=== PATIENT | female | born 1930 | race Caucasian/White ===

== ENCOUNTER 2016-07-27 13:46 | Inpatient (IN) | payer OTHER ==
[~2016-07-27] VITALS: Ht 160 cm; Wt 75.2 kg
[~2016-07-27 13:46] MED LIST: ALBU1AER9 INH; ATV5 PO; CLTP PO; FLNIN NAE; GEMF600T3 PO; MOME50SP5 NAE; MULT-506 PO; NXM/40 PO; SYMIN160 INH; SYN50 PO; ZFRODT4 SL
--- NOTE | 2016-07-27 14:35 | EMERGENCY ROOM VISIT NOTE ---
History Report prepared by Marivel: Anusha Fairbanks Under the Supervision of: Dr. Jose Raul Coelho M.D. First contact with patient: 14:06 Chief Complaint: FALL Stated Complaint: FALL/ RT HIP PAIN History of Present Illness The patient is a 86 year old female who presents to the Emergency Room via ambulance with complaints of constant right hip pain status post a fall today. The patient states that she turned in her kitchen and slipped. She tried to catch her herself but landed on her right hip on the floor. She was helped up but could not bear any weight on her right leg. She did not hit her head or lose consciousness during the fall. Currently, she also has some right knee pain. Denies back pain or other complaints. She is not on a blood thinner. Source of History: patient Onset: today Position: other (right hip) Timing: constant Modifying Factors (Worsening): other (bearing weight) Associated Symptoms: No LOC, No back pain Review of Systems See HPI for pertinent positives & negatives. A total of 10 systems reviewed and were otherwise negative. Past Medical & Surgical Medical Problems: (1) Hypertension (2) Lyme disease (3) Prediabetes Surgical Problems: (1) H/O: hysterectomy (2) Hx of cholecystectomy Family History FH: heart disease FHx: gallbladder disease Hypertension Social History Smoking Status: Never Smoker Marital Status: Occupation Status: retired Current/Historical Medications Scheduled Albuterol Sulfate (Proair Respiclick), 1-2 PUFFS INH 4-6 HOURS Esomeprazole Magnesium (Nexium), 40 MG PO DAILY Fluticasone Prop/Salmeterol (Advair Diskus 100/50 60 Dose), 1 PUFF INH BID Gemfibrozil (Lopid), 600 MG PO BID Levothyroxine Sodium (Synthroid), 75 MCG PO DAILY Loratadine (Claritin), 10 MG PO DAILY Lorazepam (Ativan), 0.5 MG PO TID Multiple Vitamins W/ Minerals (Centrum Silver Ultra Wome), 1 TAB PO DAILY Allergies Coded Allergies: No Known Allergies (Unverified , 08/09/11) Physical Exam Vital Signs Date Time Temp Pulse Resp B/P Pulse Ox O2 Delivery O2 Flow Rate FiO2 07/27/16 17:00 109 18 184/104 07/27/16 15:17 103 18 203/107 93 Room Air 07/27/16 14:04 97 07/27/16 13:53 36.8 96 18 225/103 96 Room Air Physical Exam GENERAL: Patient is in no acute distress. HEENT: No acute trauma, normocephalic atraumatic, mucous membranes moist, no nasal congestion, no scleral icterus. NECK: No stridor, no adenopathy, no meningismus, trachea is midline. LUNGS: Clear to auscultation bilaterally, no wheeze, no rhonchi, breath sounds equal. HEART: 3/6 systolic murmur with a regular rate and rhythm. ABDOMEN: Soft, nontender, bowel sounds positive, no hernias, no peritonitis. EXTREMITIES: No upper extremity trauma noted. Pain to palpate the right lateral hip, no gross deformity to the right lower extremity, her right hip and right knee are slightly flexed to a position of comfort. NVI distally. NEUROLOGIC: Oriented x 3, no acute motor or sensory deficits, no focal weakness. SKIN: No rash, no jaundice, no diaphoresis. Medical Decision & Procedures ER Provider Diagnostic Interpretation: Radiology results and stated below per my review and radiologist interpretation: PELVIS 1 OR 2 VIEW ROUTINE CLINICAL HISTORY: Right hip pain following fall. COMPARISON STUDY: CT of the abdomen and pelvis August 14, 2011. FINDINGS: There is an acute impacted, displaced subcapital right femoral neck fracture. No acute fracture within the pelvis or the left hip is identified. There is mild to moderate bilateral hip arthritis. IMPRESSION: Acute impacted displaced subcapital right femoral neck fracture. Electronically signed by: Emil Spangler M.D. 07/27/2016 2:53 PM Dictated Date/Time: 07/27/2016 2:53 PM RIGHT FEMUR 2 VIEWS ROUTINE, RIGHT KNEE 1 OR 2 VIEWS ROUTINE CLINICAL HISTORY: fall, pain Right. Right leg and knee pain. COMPARISON STUDY: None. FINDINGS: No fracture or dislocation within the mid to distal right femur or right knee. The proximal right femur is not included on this study and better appreciated on the same day right hip radiograph. Mild osteoarthritis within the right knee. No knee effusion. Soft tissues are unremarkable. IMPRESSION: No fracture or dislocation within the mid to distal right femur or right knee. The proximal right femur is not included on this study and is better appreciated on the same day right hip radiograph. Electronically signed by: Mac Contreras M.D. 07/27/2016 2:55 PM Dictated Date/Time: 07/27/2016 2:53 PM RIGHT HIP UNILATERAL 2 VIEWS CLINICAL HISTORY: Right hip pain following fall. COMPARISON: CT of the abdomen and pelvis August 14, 2011. FINDINGS: There is an impacted, displaced subcapital right femoral neck fracture. IMPRESSION: Acute displaced subcapital right femoral neck fracture. Electronically signed by: Emil Spangler M.D. 07/27/2016 2:52 PM Dictated Date/Time: 07/27/2016 2:51 PM RIGHT FEMUR 2 VIEWS ROUTINE, RIGHT KNEE 1 OR 2 VIEWS ROUTINE CLINICAL HISTORY: fall, pain Right. Right leg and knee pain. COMPARISON STUDY: None. FINDINGS: No fracture or dislocation within the mid to distal right femur or right knee. The proximal right femur is not included on this study and better appreciated on the same day right hip radiograph. Mild osteoarthritis within the right knee. No knee effusion. Soft tissues are unremarkable. IMPRESSION: No fracture or dislocation within the mid to distal right femur or right knee. The proximal right femur is not included on this study and is better appreciated on the same day right hip radiograph. Electronically signed by: Mac Contreras M.D. 07/27/2016 2:55 PM Dictated Date/Time: 07/27/2016 2:53 PM CHEST ONE VIEW PORTABLE CLINICAL HISTORY: Hip fracture. Fall. COMPARISON STUDY: Chest radiograph August 09, 2011. FINDINGS: There is no pneumothorax or pleural effusion. The cardiomediastinal silhouette is stable. There is no evidence of pulmonary edema. The appearance of the chest is unchanged. IMPRESSION: No acute cardiopulmonary findings. Electronically signed by: Emil Spangler M.D. 07/27/2016 3:35 PM Dictated Date/Time: 07/27/2016 3:35 PM Laboratory Results 07/27/16 14:00 Red Blood Count 4.27, Mean Corpuscular Volume 86.9, Mean Corpuscular Hemoglobin 28.8, Mean Corpuscular Hemoglobin Concent 33.2, Mean Platelet Volume 9.6, Neutrophils (%) (Auto) 63.1, Lymphocytes (%) (Auto) 25.8, Monocytes (%) (Auto) 8.5, Eosinophils (%) (Auto) 0.8, Basophils (%) (Auto) 0.4, Neutrophils # (Auto) 5.71, Lymphocytes # (Auto) 2.34, Monocytes # (Auto) 0.77, Eosinophils # (Auto) 0.07, Basophils # (Auto) 0.04 07/27/16 14:00 Test 07/27/16 14:00 07/27/16 16:53 White Blood Count 9.06 K/uL (4.8-10.8) Red Blood Count 4.27 M/uL (4.2-5.4) Hemoglobin 12.3 g/dL (12.0-16.0) Hematocrit 37.1 % (37-47) Mean Corpuscular Volume 86.9 fL (80-100) Mean Corpuscular Hemoglobin 28.8 pg (25-34) Mean Corpuscular Hemoglobin Concent 33.2 g/dl (32-36) Platelet Count 336 K/uL (130-400) Mean Platelet Volume 9.6 fL (7.4-10.4) Neutrophils (%) (Auto) 63.1 % Lymphocytes (%) (Auto) 25.8 % Monocytes (%) (Auto) 8.5 % Eosinophils (%) (Auto) 0.8 % Basophils (%) (Auto) 0.4 % Neutrophils # (Auto) 5.71 K/uL (1.4-6.5) Lymphocytes # (Auto) 2.34 K/uL (1.2-3.4) Monocytes # (Auto) 0.77 K/uL (0.11-0.59) Eosinophils # (Auto) 0.07 K/uL (0-0.5) Basophils # (Auto) 0.04 K/uL (0-0.2) RDW Standard Deviation 44.3 fL (36.4-46.3) RDW Coefficient of Variation 13.9 % (11.5-14.5) Immature Granulocyte % (Auto) 1.4 % Immature Granulocyte # (Auto) 0.13 K/uL (0.00-0.02) Prothrombin Time 11.5 SECONDS (9.0-12.0) Prothromb Time International Ratio 1.1 (0.9-1.1) Activated Partial Thromboplast Time 29.4 SECONDS (21.0-31.0) Partial Thromboplastin Ratio 1.1 Anion Gap 8.0 mmol/L (3-11) Est Creatinine Clear Calc Drug Dose 46.6 ml/min Estimated GFR () 75.2 Estimated GFR (Non- 64.8 BUN/Creatinine Ratio 18.5 (10-20) Calcium Level 8.8 mg/dl (8.5-10.1) Laboratory results reviewed by me. Medications Administered Medications (Trade) Dose Ordered Sig/Bunny Route Start Time Stop Time Status Last Admin Dose Admin Lactated Ringer's (Lr 1000ml) 1,000 ml @ 150 mls/hr Q6H40M IV 07/27/16 15:05 08/26/16 15:04 07/27/16 16:04 150 MLS/HR Acetaminophen (Tylenol Tab) 1,000 mg Q6H PRN PO 07/27/16 15:15 08/26/16 15:14 07/27/16 16:05 1,000 MG Hydralazine HCl (HydrALAZINE INJ) 5 mg NOW STAT IV. 07/27/16 15:57 07/27/16 16:09 DC 07/27/16 16:17 5 MG ECG Indication: other (fall) Rate (beats per minute): 103 Rhythm: sinus tachycardia Findings: PAC, no acute ischemic change ED Course 1409: The patient was evaluated in room B7. A complete history and physical exam was performed. 1505: Ordered Lactated Ringer's 1000 ml @ 150 mls/hr IV. 1508: Upon reexamination the patient is resting comfortably. I discussed results and treatment plan with the patient. She verbalizes agreement and understanding. The patient will be evaluated for further management. 1505: Ordered Tylenol Tab 1000 mg PO. 1510: I discussed the case with Dr. Rizvi [place] [facility] [place] The patient will be evaluated for further management. Medical Decision Differential includes but is not limited to hip or pelvic fracture, hip contusion, femur fracture, knee fracture, strain. There is no leukocytosis were concerning anemia. No significant electrolyte abnormality or kidney failure. EKG shows a sinus tachycardia, no acute ischemia , no dysrhythmia. Pelvis, right hip, right femur and right knee films were done -there is a fracture of the right femur. The fracture is subcapital. There is no pelvic, distal femur or right knee fracture. The patient received only oral Tylenol for pain, she did not want anything stronger. I did talk with her about her findings, I talked with case management. The on-call hospitalist was consulted. Orthopedic intervention will be required. Of note, on exam, I find no evidence for injury elsewhere. Her injuries appear to be related to the right hip alone. Consults Time Called: 1506 Consulting Physician: Dr. Dmitri VELA Hospitalist Returned Call: 1510 I discussed the case with her. The patient will be evaluated for further management. Impression Primary Impression: Hip fracture, right Additional Impression: Fall Scribe Attestation The scribe's documentation has been prepared under my direction and personally reviewed by me in its entirety. I confirm that the note above accurately reflects all work, treatment, procedures, and medical decision making performed by me. Departure Information Dispostion Being Evaluated By Hospitalist Referrals Alexander Wren M.D. (PCP) Patient Instructions My [facility] Problem Qualifiers
--- NOTE | 2016-07-27 14:55 | DIAGNOSTIC IMAGING REPORT ---
RIGHT HIP UNILATERAL 2 VIEWS CLINICAL HISTORY: Right hip pain following fall. COMPARISON: CT of the abdomen and pelvis August 14, 2011. FINDINGS: There is an impacted, displaced subcapital right femoral neck fracture. IMPRESSION: Acute displaced subcapital right femoral neck fracture. Electronically signed by: Emil Spangler M.D. 07/27/2016 2:52 PM Dictated Date/Time: 07/27/2016 2:51 PM
--- NOTE | 2016-07-27 14:56 | DIAGNOSTIC IMAGING REPORT ---
PELVIS 1 OR 2 VIEW ROUTINE CLINICAL HISTORY: Right hip pain following fall. COMPARISON STUDY: CT of the abdomen and pelvis August 14, 2011. FINDINGS: There is an acute impacted, displaced subcapital right femoral neck fracture. No acute fracture within the pelvis or the left hip is identified. There is mild to moderate bilateral hip arthritis. IMPRESSION: Acute impacted displaced subcapital right femoral neck fracture. Electronically signed by: Emil Spangler M.D. 07/27/2016 2:53 PM Dictated Date/Time: 07/27/2016 2:53 PM
--- NOTE | 2016-07-27 14:57 | DIAGNOSTIC IMAGING REPORT ---
RIGHT FEMUR 2 VIEWS ROUTINE, RIGHT KNEE 1 OR 2 VIEWS ROUTINE CLINICAL HISTORY: fall, pain Right. Right leg and knee pain. COMPARISON STUDY: None. FINDINGS: No fracture or dislocation within the mid to distal right femur or right knee. The proximal right femur is not included on this study and better appreciated on the same day right hip radiograph. Mild osteoarthritis within the right knee. No knee effusion. Soft tissues are unremarkable. IMPRESSION: No fracture or dislocation within the mid to distal right femur or right knee. The proximal right femur is not included on this study and is better appreciated on the same day right hip radiograph. Electronically signed by: Mac Contreras M.D. 07/27/2016 2:55 PM Dictated Date/Time: 07/27/2016 2:53 PM
[2016-07-27] MEDS ORDERED: LACTATED RINGER'S 1000ML 1,000 ML IV SCH (15:05)
[2016-07-27 15:14] LABS: BASO % 0.4 %; BASO ABS # 0.04 K/uL (0-0.2); COMPLETE YES; EOS % 0.8 %; HEMATOCRIT 37.1 % (37-47); IG% 1.4 %; LYMPH % 25.8 %; LYMPH ABS # 2.34 K/uL (1.2-3.4); MEAN CELL VOLUME 86.9 fL (80-100); MEAN CORPUSCULAR HEMOGLOBIN 28.8 pg (25-34); MEAN CORPUSCULAR HGB CONC 33.2 g/dl (32-36); MEAN PLATELET VOLUME 9.6 fL (7.4-10.4); MONO % 8.5 %; NEUT % 63.1 %; PLATELET COUNT 336 K/uL (130-400); RED BLOOD COUNT 4.27 M/uL (4.2-5.4); WHITE BLOOD COUNT 9.06 K/uL (4.8-10.8)
[2016-07-27] MEDS ORDERED: ACETAMINOPHEN 500 MG TAB PO PRN (15:15)
[2016-07-27 15:19] LABS: INR 1.1 (0.9-1.1); PARTIAL THROMBOPLASTIN RATIO 1.1; PROTHROMBIN TIME (PATIENT) 11.5 SECONDS (9.0-12.0)
[2016-07-27 15:25] LABS: BUN/CREATININE RATIO 18.5 (10-20); CALCIUM 8.8 mg/dl (8.5-10.1); CREATININE 0.81 mg/dl (0.60-1.20); POTASSIUM 3.8 mmol/L (3.5-5.1)
--- NOTE | 2016-07-27 15:37 | DIAGNOSTIC IMAGING REPORT ---
CHEST ONE VIEW PORTABLE CLINICAL HISTORY: Hip fracture. Fall. COMPARISON STUDY: Chest radiograph August 09, 2011. FINDINGS: There is no pneumothorax or pleural effusion. The cardiomediastinal silhouette is stable. There is no evidence of pulmonary edema. The appearance of the chest is unchanged. IMPRESSION: No acute cardiopulmonary findings. Electronically signed by: Emil Spangler M.D. 07/27/2016 3:35 PM Dictated Date/Time: 07/27/2016 3:35 PM
[2016-07-27] MEDS ORDERED: LORA-741 PO (15:45)
[2016-07-27] MEDS ORDERED: ADVIN10/60 INH (15:45)
[2016-07-27] MEDS ORDERED: MULT-614 PO (15:45)
[2016-07-27] MEDS ORDERED: CLR10 PO (15:45)
[2016-07-27] MEDS ORDERED: LEVO75TA PO (15:45)
[2016-07-27] MEDS ORDERED: ALBU18002 INH (15:45)
[2016-07-27] MEDS ORDERED: HydrALAZINE HCL 20 MG/ML VIAL IM STA (15:49)
[2016-07-27] MEDS ORDERED: HydrALAZINE HCL 20 MG/ML VIAL IV. STA (15:57)
[2016-07-27] MEDS ORDERED: ALBUTEROL HFA 8 GM INHALER INH PRN (16:00)
[2016-07-27] MEDS ORDERED: ACETAMINOPHEN 325 MG TAB PO PRN (16:00)
[2016-07-27] MEDS ORDERED: LORAZEPAM 0.5 MG TAB PO PRN (16:00)
[2016-07-27] MEDS ORDERED: ONDANSETRON INJ 2 MG/ML 2 ML VIAL IV PRN (16:00)
[2016-07-27] MEDS ORDERED: MAGNESIUM HYDROXIDE SUSP 30 ML UDC PO PRN (16:00)
[2016-07-27] MEDS ORDERED: ALUMINUM/MAGNESIUM/SIMETH (MAALOX MAX) 30 ML UDC PO PRN (16:00)
--- NOTE | 2016-07-27 16:04 | History and Physical ---
History & Physical Date & Time of Service: Jul 27, 2016 at 15:23 Chief Complaint: Fall/ Rt Hip Pain Primary Care Physician: Alexander Wren M.D. History of Present Illness Source: patient Patient is a 85 y.o.F: who presented to the ED with hip fracture. Pt has a PMHx of Asthma, hypothyroidism, macular degeneration. She states that this morning while making her breakfast she turned around and experience an mechanical fall on her right hip. Patient denies any LOC, dizziness, SOB, or chest pain prior to fall. Her life alert was signalled and EMS came. At that time patient noticed she could not weight bear on her left extremity and proceeded ED. Past Medical/Surgical History Medical Problems: (1) Hypertension Status: Chronic (2) Lyme disease Status: Chronic (3) Prediabetes Status: Chronic Surgical Problems: (1) H/O: hysterectomy Status: Resolved (2) Hx of cholecystectomy Status: Resolved Family History FH: heart disease FHx: gallbladder disease Hypertension Social History Smoking Status: Never Smoker Smokeless Tobacco Use: No Alcohol Use: none Drug Use: none Marital Status: Housing status: lives alone Occupational Status: retired Immunizations History of Influenza Vaccine: Yes Influenza Vaccine Date: Feb 20, 2010 History of Tetanus Vaccine?: Unknown History of Pneumococcal: Yes History of Hepatitis B Vaccine: Unknown Multi-Drug Resistant Organisms History of MDRO: No Allergies Coded Allergies: No Known Allergies (Unverified , 08/09/11) Uncoded Allergies: NKA (Allergy, Unknown, 09/12/14) No Known Allergies Home Medications Scheduled Albuterol Sulfate (Proair Respiclick), 1-2 PUFFS INH 4-6 HOURS Esomeprazole Magnesium (Nexium), 40 MG PO DAILY Fluticasone Prop/Salmeterol (Advair Diskus 100/50 60 Dose), 1 PUFF INH BID Gemfibrozil (Lopid), 600 MG PO BID Levothyroxine Sodium (Synthroid), 75 MCG PO DAILY Loratadine (Claritin), 10 MG PO DAILY Lorazepam (Ativan), 0.5 MG PO TID Multiple Vitamins W/ Minerals (Centrum Silver Ultra Wome), 1 TAB PO DAILY Review of Systems Constitutional: No chills, No fever ENT: No hearing loss Respiratory: No cough, No shortness of breath, No sputum Cardiovascular: No chest pain, No claudication, No edema Abdomen: No pain Musculoskeletal: + joint pain (right hip pain on movement), No swelling Genitourinary - Female: No dysuria Neurologic: No memory loss, No paralysis Psychiatric: No depression symptoms Endocrine: No fatigue Hematologic / Lymphatic: No abnormal bleeding/bruising Integumentary: No itch, No rash Physical Exam Vital Signs Date Time Temp Pulse Resp B/P Pulse Ox O2 Delivery O2 Flow Rate FiO2 07/27/16 15:17 103 18 93 Room Air 07/27/16 14:04 97 07/27/16 13:53 36.8 96 18 225/103 96 Room Air General Appearance: WD/WN, no apparent distress Head: normocephalic Eyes: normal inspection ENT: normal ENT inspection, hearing grossly normal Neck: supple, no adenopathy Respiratory/Chest: chest non-tender, lungs clear Cardiovascular: regular rate, rhythm, no edema Abdomen/GI: normal bowel sounds, non tender Back: normal inspection Extremities/Musculoskelatal: normal inspection, no calf tenderness, no pedal edema, + pertinent finding (No swelling or deformatiy noted of right hip) Neurologic/Psych: rd mechanical engineer II-XII nml as tested, no motor/sensory deficits Skin: normal color, warm/dry, no rash Lymphatic: no adenopathy Diagnostics Laboratory Results Results Past 24 Hours Test 07/27/16 14:00 Range/Units White Blood Count 9.06 4.8-10.8 K/uL Red Blood Count 4.27 4.2-5.4 M/uL Hemoglobin 12.3 12.0-16.0 g/dL Hematocrit 37.1 37-47 % Mean Corpuscular Volume 86.9 80-100 fL Mean Corpuscular Hemoglobin 28.8 25-34 pg Mean Corpuscular Hemoglobin Concent 33.2 32-36 g/dl Platelet Count 336 130-400 K/uL Mean Platelet Volume 9.6 7.4-10.4 fL Neutrophils (%) (Auto) 63.1 % Lymphocytes (%) (Auto) 25.8 % Monocytes (%) (Auto) 8.5 % Eosinophils (%) (Auto) 0.8 % Basophils (%) (Auto) 0.4 % Neutrophils # (Auto) 5.71 1.4-6.5 K/uL Lymphocytes # (Auto) 2.34 1.2-3.4 K/uL Monocytes # (Auto) 0.77 0.11-0.59 K/uL Eosinophils # (Auto) 0.07 0-0.5 K/uL Basophils # (Auto) 0.04 0-0.2 K/uL RDW Standard Deviation 44.3 36.4-46.3 fL RDW Coefficient of Variation 13.9 11.5-14.5 % Immature Granulocyte % (Auto) 1.4 % Immature Granulocyte # (Auto) 0.13 0.00-0.02 K/uL Prothrombin Time 11.5 9.0-12.0 SECONDS Prothromb Time International Ratio 1.1 0.9-1.1 Activated Partial Thromboplast Time 29.4 21.0-31.0 SECONDS Partial Thromboplastin Ratio 1.1 Diagnostic Radiology Hip XRAY Acute displaced subcapital right femoral neck fracture. Impression Assessment and Plan Patient is a 86 y.o.F who presented with right hip pain found to have a hip fracture. On presentation patient found to have hypertensive urgency. Right Hip Fracture - admit to med surgery - consult orthopedics - pain control with morphine - bed Rest Hypertensive Urgency - pt has no PMhx of hypertension and states she is extremely anxious - cont ativan prn - will give now dose of hydralazine and then start on po hydralazine prn - would hold on OR until blood pressure controlled Asthma - not in exacerbation - continue albuterol prn and symbicort HLD - cont lopid PPx- lovenox Full Code Level of Care Med/Surg Resuscitation Status FULL RESUSCITATION VTE Prophylaxis VTE Risk Assessment Done? Y/N: No Risk Level: Moderate Given or contraindicated: Enoxaparin (Lovenox)SQ Social Service Consult None Apply
[2016-07-27] MEDS ORDERED: POLYETHYLENE (MIRALAX) 17 GM PACK PO PRN (17:15)
[2016-07-27 17:19] VITALS: Ht 160 cm; Wt 75.2 kg
[2016-07-27 17:20] LABS: URINE APPEARANCE CLEAR (CLEAR); URINE BILIRUBIN NEG (NEG); URINE COLOR YELLOW; URINE EPITHELIAL CELL AUTO 0-5 /lpf (0-5); URINE NITRITE NEG (NEG); UROBILINOGEN NEG (NEG); ZZURINE CULT IF INDIC CATH NO
[2016-07-27 17:28] LABS: MANUAL MICROSCOPIC REQUIRED? NO; REVIEW REQ? NO
[2016-07-27 18:08] VITALS: BP 177/84; PULSE 104; TEMP 37; O2SAT 95
[2016-07-27] MEDS: MoRPHine SULFATE 2 MG/ML CARP IV PRN (18:24)
[2016-07-27 18:46] VITALS: BP 160/65
[2016-07-27] MEDS ORDERED: ENOXAPARIN 40 MG/0.4 ML SYR SQ SCH (21:00)
[2016-07-27] MEDS: FLUTICASONE/SALMETEROL 100/50 (ADVAIR) 14 PUFF/1 INHALER INH SCH (21:15)
[2016-07-27] MEDS: GEMFIBROZIL 600 MG TAB PO SCH (21:16)
[2016-07-27 23:20] VITALS: BP 119/66; PULSE 70; TEMP 36.8; O2SAT 93
[2016-07-28] VITALS (7 sets, daily range): BP systolic 92–161; BP diastolic 61–74; PULSE 88–101; TEMP 36.3–37; O2SAT 94–98
[2016-07-28] MEDS: LEVOTHYROXINE 75 MCG TAB PO SCH (05:51)
[2016-07-28 06:07] LABS: HEMATOCRIT 36.5 % (37-47); MEAN CELL VOLUME 86.9 fL (80-100); MEAN CORPUSCULAR HGB CONC 33.4 g/dl (32-36); MEAN PLATELET VOLUME 9.3 fL (7.4-10.4); PLATELET COUNT 313 K/uL (130-400); WHITE BLOOD COUNT 11.29 K/uL (4.8-10.8)
[2016-07-28 06:41] LABS: BUN/CREATININE RATIO 14.2 (10-20); CALCIUM 8.5 mg/dl (8.5-10.1); CREATININE 0.74 mg/dl (0.60-1.20); POTASSIUM 3.8 mmol/L (3.5-5.1)
--- NOTE | 2016-07-28 08:33 | CONSULTATION REPORT ---
DATE OF CONSULTATION: 07/28/2016 REASON FOR CONSULT: Right hip fracture. HISTORY OF PRESENT ILLNESS: The patient is an 86-year-old white female who was admitted on 07/27/2016 at 3:[address] Rizvi. We were consulted when it was found the patient had an acute impacted, displaced subcapital right femoral neck fracture. Initially, the patient came in hypertensive and was admitted under the medicine service, and we have been asked to take care of her right hip fracture. Upon entering her room, she is awake and alert and oriented to person and place and states that her hip pain is under control at this point in time. She states that she was ambulating normally in her house, and when she turned to go a different direction, she lost her balance and fell to the floor. She had immediate pain in her right hip and was unable to get up and ambulate. She was brought to the Emergency Room. She was seen by the staff and x-rays were taken and found that she had the subcapital hip fracture as noted above. PAST MEDICAL HISTORY: Hypertension, Lyme disease, prediabetic. No history of hepatitis, tuberculosis, COPD or rheumatic fever. PAST SURGICAL HISTORY: Hysterectomy and cholecystectomy. She has had a right wrist surgery in the past. FAMILY HISTORY: Heart disease, cholelithiasis, hypertension. SOCIAL HISTORY: The patient is nonsmoker, does not use alcohol. She is and lives alone and her brother helps her with things like taking her to appointments, etc. MEDICATIONS: Albuterol 1-2 puffs inhaled q. 4-6 h., Nexium 40 mg p.o. daily, Advair Diskus 100/50 one puff inhaled b.i.d., gemfibrozil 600 mg p.o. b.i.d., levothyroxine 75 mcg p.o. daily, loratadine 10 mg p.o. daily, lorazepam 0.5 mg p.o. t.i.d., Centrum multivitamin 1 tab p.o. daily. REVIEW OF SYSTEMS: As per admitting history and physical. PHYSICAL EXAMINATION: VITAL SIGNS: This morning temp 36.8, pulse 70, respirations 18, BP 119/66, pulse ox is 93 on room air. GENERAL: The patient is a mildly obese white female, alert and oriented x2, pleasant, cooperative, in no acute distress. EXTREMITIES: On examination of her right hip, she has no overt bruising over the lateral aspect of her hip but has moderate pain with mild internal and external rotation of the right hip and even trying to do gentle flexion of the hip causes her discomfort. Range of motion of the hip is very limited at this time due to fracture. She has no knee pain on palpation of the right knee and she is moving her right ankle and toes quite well without discomfort. Left lower extremity is essentially benign and she has adequate range of motion of the left hip, knee, ankle and toes. Upper extremities are without injury and she is nontender over the shoulders, elbows and wrist, and range of motion is within normal limits. Distal pulses are equal bilaterally of the upper and lower extremities. She has good sensation in the lower extremities at this time as well as the upper extremities. NEUROLOGICAL: No gross motor deficits are noted at this time other than due to her hip fracture. Again, sensation is intact. DIAGNOSIS: Subcapital hip fracture, right hip. PLAN: The patient will either need percutaneous cannulated screws for fixation versus bipolar hemiarthroplasty, to be decided by surgeon at the time of the procedure. JAVI
[2016-07-28] MEDS: MoRPHine SULFATE 2 MG/ML CARP IV PRN ×2 (08:35→17:47)
[2016-07-28] MEDS: GEMFIBROZIL 600 MG TAB PO SCH ×2 (08:36→21:25)
[2016-07-28] MEDS: FLUTICASONE/SALMETEROL 100/50 (ADVAIR) 14 PUFF/1 INHALER INH SCH ×2 (08:37→21:22)
[2016-07-28] MEDS: CEROVITE ADV FORMULA TAB PO SCH (08:49)
[2016-07-28] MEDS: LORATADINE 10 MG TAB PO SCH (08:49)
--- NOTE | 2016-07-28 09:06 | Clinical Documentation Query ---
CLINICAL DOCUMENTATION QUERY 86 year old female who presents to the Emergency Room via ambulance with complaints of constant right hip pain status post a fall today. In your clinical opinion is this patient being managed for: ( x ) Traumatic Osteoporotic fracture of right femur sustained in ground level fall. ( ) Other explanation of clinical findings (Please Explain) ( ) Unable to determine (Please Define) ( ) Need to Discuss ( ) Not Agree The medical record reflects the following clinical findings, treatment, and risk factors. Clinical Indicators: 86y/o, female, Fall from ground level which fractured right femoral neck. Treatment: Orthopedic consult, scheduled surgical fixation. Risk Factors: Age, sex, low level fall where patient suffered long bone fracture in which young healthy bone would not have fractured. Please clarify and document your clinical opinion in the progress notes and discharge summary. Terms such as "probable", "suspected", "likely", "questionable", "possible", or "still to be ruled out" are acceptable. IF IN AGREEMENT, YOU MUST DOCUMENT ABOVE DIAGNOSTIC STATEMENT IN DAILY PROGRESS NOTES AND DISCHARGE SUMMARY. This document is not part of the patient's record. Thank You, Humberto Sorto, LUCIANA [phone]
[2016-07-28] MEDS ORDERED: BUPIVACAINE 0.5 % 5 MG/1 ML PF 10ML VIAL ONE (09:10)
--- NOTE | 2016-07-28 09:19 | Hospitalist Progress Note ---
Hospitalist Progress Note Date of Service Jul 28, 2016. Subjective Pt evaluation today including: conversation w/ patient, physical exam, chart review, lab review, review of studies, review of inpatient medication list Pt having some pain in rt hip and rt knee, otherwise doing well, BP improved, denies CP/SOB, no other injuries. She clearly remembers the fall, has no h/o angina or syncope. All Other Systems: Reviewed and Negative Objective Vital Signs Date Time Temp Pulse Resp B/P Pulse Ox O2 Delivery O2 Flow Rate FiO2 07/28/16 08:02 37.0 89 16 138/61 94 Room Air 07/28/16 07:10 Room Air 07/27/16 23:20 36.8 70 18 119/66 93 Room Air 07/27/16 20:15 Room Air 07/27/16 18:46 160/65 07/27/16 18:08 37.0 104 20 177/84 95 Room Air 07/27/16 17:36 103 18 169/78 93 Room Air 07/27/16 17:19 Room Air 07/27/16 17:00 109 18 184/104 07/27/16 15:17 103 18 203/107 93 Room Air 07/27/16 14:04 97 07/27/16 13:53 36.8 96 18 225/103 96 Room Air Physical Exam General Appearance: WD/WN, no apparent distress Eyes: normal inspection, sclerae normal ENT: pharynx normal Neck: trachea midline Respiratory/Chest: lungs clear, normal breath sounds, no respiratory distress, no accessory muscle use Cardiovascular: regular rate, rhythm, no edema, no gallop, + systolic murmur (2 /6 at RUSB) Abdomen: normal bowel sounds, non tender, soft, no organomegaly, no pulsatile mass Extremities: non-tender (except min ttp over rt hip), normal inspection, no pedal edema, no calf tenderness Neurologic/Psychiatric: no motor/sensory deficits, alert, normal mood/affect, oriented x 3 Skin: normal color, warm/dry, no rash Laboratory Results Last 24 Hours Test 07/27/16 14:00 07/27/16 16:53 07/28/16 05:37 White Blood Count 9.06 K/uL 11.29 K/uL Red Blood Count 4.27 M/uL 4.20 M/uL Hemoglobin 12.3 g/dL 12.2 g/dL Hematocrit 37.1 % 36.5 % Mean Corpuscular Volume 86.9 fL 86.9 fL Mean Corpuscular Hemoglobin 28.8 pg 29.0 pg Mean Corpuscular Hemoglobin Concent 33.2 g/dl 33.4 g/dl Platelet Count 336 K/uL 313 K/uL Mean Platelet Volume 9.6 fL 9.3 fL Neutrophils (%) (Auto) 63.1 % Lymphocytes (%) (Auto) 25.8 % Monocytes (%) (Auto) 8.5 % Eosinophils (%) (Auto) 0.8 % Basophils (%) (Auto) 0.4 % Neutrophils # (Auto) 5.71 K/uL Lymphocytes # (Auto) 2.34 K/uL Monocytes # (Auto) 0.77 K/uL Eosinophils # (Auto) 0.07 K/uL Basophils # (Auto) 0.04 K/uL RDW Standard Deviation 44.3 fL 44.1 fL RDW Coefficient of Variation 13.9 % 13.8 % Immature Granulocyte % (Auto) 1.4 % Immature Granulocyte # (Auto) 0.13 K/uL Prothrombin Time 11.5 SECONDS Prothromb Time International Ratio 1.1 Activated Partial Thromboplast Time 29.4 SECONDS Partial Thromboplastin Ratio 1.1 Sodium Level 134 mmol/L 134 mmol/L Potassium Level 3.8 mmol/L 3.8 mmol/L Chloride Level 100 mmol/L 97 mmol/L Carbon Dioxide Level 26 mmol/L 27 mmol/L Anion Gap 8.0 mmol/L 10.0 mmol/L Blood Urea Nitrogen 15 mg/dl 11 mg/dl Creatinine 0.81 mg/dl 0.74 mg/dl Est Creatinine Clear Calc Drug Dose 46.6 ml/min 51.0 ml/min Estimated GFR () 75.2 83.8 Estimated GFR (Non- 64.8 72.3 BUN/Creatinine Ratio 18.5 14.2 Random Glucose 95 mg/dl 102 mg/dl Calcium Level 8.8 mg/dl 8.5 mg/dl Urine Color YELLOW Urine Appearance CLEAR Urine pH 7.0 Urine Specific [place] 1.010 Urine Protein TRACE Urine Glucose (UA) NEG Urine Ketones TRACE Urine Occult Blood NEG Urine Nitrite NEG Urine Bilirubin NEG Urine Urobilinogen NEG Urine Leukocyte Esterase NEG Urine WBC (Auto) 0 /hpf Urine RBC (Auto) 0-4 /hpf Urine Hyaline Casts (Auto) 0 /lpf Urine Epithelial Cells (Auto) 0-5 /lpf Urine Bacteria (Auto) NEG Assessment and Plan Patient is a 86 y.o.F with a h/o hypothyroidism, HL, mild , mod AI, PFO, and mild asthma who presented with mechanical fall resulting in right hip pain - found to have a displaced, impacted subcapital hip fracture. On presentation patient found to have hypertensive urgency Right Hip Fracture - admit to med surgery - consult orthopedics appreciated-plan for surgery sometime today, keep NPO - pain control with morphine - bed Rest -Tripp cath -will need SNF placement Hypertensive Urgency-resolved with pain control and hydralazine- pt has no PMhx of hypertension and states she is extremely anxious - cont ativan prn - continue po hydralazine prn -ok for OR today Asthma-mild, - not in exacerbation - continue albuterol prn and symbicort HLD - cont lopid Mild , Mod AI on ECHO from 2009, with murmur here today. No anginal symptoms, no s/sxs of CHF or syncope, likely not severe and not limiting her from having urgent surgery -has routine ECHO ordered as outpatient in near future -watch extremes of fluid status post-op and intra-op PPx- lovenox fo rnow, Ortho to decide after surgery Full Code
[2016-07-28] MEDS ORDERED: BACITRACIN 50000 UNIT VIAL ONE (12:15)
[2016-07-28] MEDS ORDERED: FENTANYL CITRATE INJ 50 MCG/1 ML 2 ML VIAL ONE ×3 (13:00→15:52)
[2016-07-28] MEDS ORDERED: HYDROmorphone INJ 0.5 MG/0.5 ML SYR IV PRN (14:00)
[2016-07-28] MEDS ORDERED: ATROPINE SULFATE 0.1 MG/ML 5ML SYR IV PRN (14:00)
[2016-07-28] MEDS ORDERED: LABETALOL HCL IV 5 MG/ML 20ML IV PRN (14:00)
[2016-07-28] MEDS ORDERED: ONDANSETRON INJ 2 MG/ML 2 ML VIAL IV PRN ×2 (14:00→16:00)
--- NOTE | 2016-07-28 14:14 | History & Physical Bridge Note ---
H&P Re-Evaluation Bridge Note: I have examined the patient, reviewed the History & Physical and in the interval since the performance of the History & Physical I have noted the following changes of clinical significance: No changes noted
[2016-07-28] MEDS ORDERED: NURSING VERBAL MED ORDER STA (14:17)
[2016-07-28] MEDS ORDERED: CEFAZOLIN IV 2,000 MG/60 ML D5W IV ONE (14:20)
[2016-07-28] MEDS ORDERED: PROPOFOL IV EMULSION 10 MG/ML 20 ML VIAL IV ONE (15:01)
[2016-07-28] MEDS ORDERED: GLYCOPYRROLATE INJ 0.2 MG/ML VIAL ONE (15:01)
[2016-07-28] MEDS ORDERED: NEOSTIGMINE METHYLSULFATE 5 MG/5 ML SYR ONE (15:01)
[2016-07-28] MEDS ORDERED: ROCURONIUM BROMIDE 10 MG/ML 5 ML VIAL ONE (15:01)
[2016-07-28] MEDS ORDERED: LIDOCAINE HCL 2% 2 ML VIAL (20MG/ML) ONE (15:01)
--- NOTE | 2016-07-28 15:20 | [facility] Post Operative Brief Note ---
Immediate Operative Summary Operative Date Jul 28, 2016. Pre-Operative Diagnosis Femoral neck fracture right Post-Operative Diagnosis same Procedure(s) Performed bipolar right hip Surgeon Dr. Jones Soil Field Technician Surgeon(s) Jon Meier PA-C Estimated Blood Loss 100ml Findings fx Specimens A. Right Femoral Head Complication(s) None Disposition Recovery Room / PACU
[2016-07-28] MEDS ORDERED: BUPIVACAINE/EPINEPHRINE 0.5% MPF 1:200,000 30 ML VIAL ONE (15:30)
--- NOTE | 2016-07-28 15:47 | OPERATIVE REPORT ---
DATE OF OPERATION: 07/28/2016 PREOPERATIVE DIAGNOSIS: Right femoral neck fracture. POSTOPERATIVE DIAGNOSIS: Right femoral neck fracture. PROCEDURE: Bipolar hemiarthroplasty, right hip. SURGEON: Dr. Jones. POT PUSHER: Jon Meier PA-C. ANESTHESIA: General. COMPLICATIONS: None. DESCRIPTION OF PROCEDURE: Following induction of adequate general anesthesia, the patient was placed in left lateral decubitus position and right hip was prepped and draped in usual sterile manner. A Derrick-Langenbach incision was made. Subcutaneous tissue was sharply dissected. Electrocautery was used for hemostasis. The fascia was incised throughout the length of the wound and the bursa was removed using scissor and pickups. A scissor was placed beneath the short external rotators and these were divided from the posterior aspect of the femur after tagging using electrocautery. These were held up posteriorly with Wade and T-capsulotomy incision was used to expose the hip. Hip was dislocated and the femoral neck was osteotomized at the appropriate level and the femoral head and neck fragment was removed. Next, attention was turned to the acetabulum which was found to have no degenerative wear and hip was evacuated of all bony debris. The femoral head was measured, this measured a size 45 and attention was turned to the proximal femur where the remainder of the piriformis removed using electrocautery. Box osteotome was used to gain access to the femoral canal and T-handled rasp was used to further open it. Raspings were continued up to a size 3 which gave good fit and fill of the canal. A trial reduction was carried out with the +0 neck length and a 45 mm femoral head. This gave good reproduction of soft tissue tension, leg lengths with excellent stability. The hip was then dislocated. The trial was removed and the hip was thoroughly irrigated. The Accolade II stem #3 was impacted in position with the femoral neck +[address] The bipolar head was then snapped into position and the hip was located. The reduction was stable. The capsule was repaired using #1 Vicryl qbfiwl-uq-lftoa suture. The piriformis was reattached to the greater trochanter using #1 Vicryl yniqhk-ep-scfld suture. A Hemovac drain was placed. Fascia was closed using #1 Vicryl pnyrny-kj-dykbn sutures, subcutaneous tissue was closed using 0 Dexon, and skin was closed with artemio. Sterile dressing of Silverlon was placed. The patient was awakened, taken to recovery in stable and good condition. The patient tolerated the procedure well. Prior to closure, 50 mL of 0.25% Marcaine with epinephrine was injected all about the hip. Jon Meier was useful in all components of the case including positioning, prepping, draping, surgical instruments inspector, retracting, wound closure and dressing application. I attest to the content of the Intraoperative Record and any orders documented therein. Any exceptio ns are noted below.
[2016-07-28] MEDS ORDERED: OXYCODONE HCL IR 5 MG TAB (IMMEDIATE RELEASE) PO PRN (16:00)
[2016-07-28] MEDS ORDERED: MAGNESIUM HYDROXIDE SUSP 30 ML UDC PO PRN (16:00)
[2016-07-28] MEDS ORDERED: BISACODYL 10 MG SUPP PR PRN (16:00)
[2016-07-28] MEDS ORDERED: ZOLPIDEM TARTRATE 5 MG TAB PO PRN (16:00)
[2016-07-28] MEDS ORDERED: ALUMINUM/MAGNESIUM/SIMETH (MAALOX MAX) 30 ML UDC PO PRN (16:00)
[2016-07-28] MEDS ORDERED: SOD PHOSPHATE/SOD BIPHOSPHATE ENEMA 132 ML BTL PR PRN (16:00)
[2016-07-28] MEDS ORDERED: DEXAMETHASONE SOD INJ 4 MG/ML VIAL ONE (16:03)
[2016-07-28] MEDS ORDERED: ONDANSETRON INJ 2 MG/ML 2 ML VIAL ONE (16:03)
[2016-07-28] MEDS ORDERED: HYDROmorphone INJ 2 MG/ML SYR/VIAL ONE (16:04)
--- NOTE | 2016-07-28 16:21 | Anesthesiology Progress Note ---
Anesthesia Post Op Note Date & Time Jul 28, 2016 at 16:21 Vital Signs Pain Intensity: 4.0 Vital Signs Past 12 Hours Date Time Temp Pulse Resp B/P Pulse Ox O2 Delivery O2 Flow Rate FiO2 07/28/16 16:15 84 15 07/28/16 16:15 87 15 144/95 99 07/28/16 16:10 91 16 153/85 100 07/28/16 16:10 89 16 07/28/16 16:05 88 12 160/71 100 07/28/16 16:05 88 12 07/28/16 16:00 97 12 07/28/16 16:00 91 12 151/74 100 07/28/16 15:56 136/65 07/28/16 15:55 84 19 100 07/28/16 15:55 84 19 07/28/16 15:50 37 84 16 136/64 100 Mask 10 07/28/16 08:02 37.0 89 16 138/61 94 Room Air 07/28/16 07:10 Room Air Notes Mental Status: alert / awake / arousable, participated in evaluation Pt Amnestic to Procedure: Yes Nausea / Vomiting: adequately controlled Pain: adequately controlled Airway Patency, RR, SpO2: stable & adequate BP & HR: stable & adequate Hydration State: stable & adequate Anesthetic Complications: no major complications apparent
[2016-07-28] MEDS ORDERED: CEFAZOLIN IV 1,000 MG in DEXTROSE 5% 50ML 50 ML IV SCH (17:00)
--- NOTE | 2016-07-28 17:15 | DIAGNOSTIC IMAGING REPORT ---
RIGHT PELVIS/UNILATERAL HIP 1 VIEW CLINICAL HISTORY: IN PACU - A/P PELVIS and LATERAL HIP INCLUDING ALL OF IMPLANT Right pain. Postoperative evaluation. COMPARISON: None. DISCUSSION: Status post total right hip replacement. Good contact between prosthetic and underlying bone. Moderate degenerative change left hip. There is no evidence for soft tissue swelling. IMPRESSION: Anatomic alignment status post total right hip replacement Electronically signed by: Archie Tellez M.D. 07/28/2016 5:13 PM Dictated Date/Time: 07/28/2016 5:13 PM
[2016-07-28] MEDS: D5W AND 1/2NSS + 20MEQ KCL 1,000 ML IV SCH (17:46)
[2016-07-28] MEDS: FERROUS GLUCONATE 324 MG TAB PO SCH (17:47)
[2016-07-28] MEDS ORDERED: OXYCODONE HCL 10 MG TABCR (OXYCONTIN) PO SCH (21:00)
[2016-07-28] MEDS: DOCUSATE SODIUM 100 MG CAP PO SCH (21:24)
[2016-07-28] MEDS: ASPIRIN 81 MG ECTAB PO SCH (21:24)
[2016-07-28] MEDS: CeleBREX 200 MG CAP PO SCH (21:24)
[2016-07-28] MEDS: SENNA 8.6 MG TAB PO SCH (21:25)
[2016-07-28] MEDS: ACETAMINOPHEN 500 MG TAB PO SCH (21:25)
[2016-07-29] VITALS (7 sets, daily range): BP systolic 108–149; BP diastolic 65–74; PULSE 81–91; TEMP 36.3–36.6; O2SAT 90–96
[2016-07-29] MEDS: D5W AND 1/2NSS + 20MEQ KCL 1,000 ML IV SCH (03:14)
[2016-07-29 05:40] LABS: BASO % 0.1 %; BASO ABS # 0.01 K/uL (0-0.2); COMPLETE YES; EOS % 0.2 %; HEMATOCRIT 33.4 % (37-47); IG% 0.3 %; LYMPH ABS # 1.98 K/uL (1.2-3.4); MEAN CELL VOLUME 86.5 fL (80-100); MEAN CORPUSCULAR HEMOGLOBIN 29.5 pg (25-34); MEAN CORPUSCULAR HGB CONC 34.1 g/dl (32-36); MEAN PLATELET VOLUME 9.1 fL (7.4-10.4); NEUT % 74.4 %; PLATELET COUNT 269 K/uL (130-400); RED BLOOD COUNT 3.86 M/uL (4.2-5.4)
[2016-07-29 05:50] LABS: INR 1.1 (0.9-1.1); PROTHROMBIN TIME (PATIENT) 11.8 SECONDS (9.0-12.0)
[2016-07-29] MEDS: LEVOTHYROXINE 75 MCG TAB PO SCH (05:57)
[2016-07-29] MEDS: ACETAMINOPHEN 500 MG TAB PO SCH ×3 (05:58→20:59)
[2016-07-29 06:04] LABS: BUN/CREATININE RATIO 15.3 (10-20); CREATININE 0.8 mg/dl (0.60-1.20); POTASSIUM 5.1 mmol/L (3.5-5.1)
--- NOTE | 2016-07-29 08:06 | Orthopedic Progress Note ---
Orthopedic Progress Note Date of Service Jul 29, 2016. Subjective Post OP Day: 1 Reports: feeling well, pain controlled w PO medications Objective calves soft nontender, N/V intact, hip located, dressing C/D/I, A&O x3, toes mobile Date Time Temp Pulse Resp B/P Pulse Ox O2 Delivery O2 Flow Rate FiO2 07/29/16 07:36 36.6 81 16 115/67 95 Room Air 07/29/16 02:57 36.3 83 16 108/65 96 Nasal Cannula 1.0 07/28/16 23:30 97 Nasal Cannula 1.0 07/28/16 23:16 36.5 88 14 124/73 98 Nasal Cannula 2.0 07/28/16 19:06 36.3 100 17 92/64 97 Nasal Cannula 3.0 07/28/16 17:57 36.5 101 17 134/72 96 Nasal Cannula 3.0 07/28/16 17:30 98 16 157/74 94 Nasal Cannula 3.0 07/28/16 17:00 95 Nasal Cannula 3.0 07/28/16 17:00 36.8 98 16 161/67 97 Nasal Cannula 3.0 07/28/16 17:00 97 Nasal Cannula 3.0 07/28/16 16:36 36.6 86 21 07/28/16 16:36 94 21 96 07/28/16 16:35 141/68 07/28/16 16:31 85 12 07/28/16 16:31 85 12 99 07/28/16 16:30 144/71 07/28/16 16:26 85 14 07/28/16 16:26 83 14 99 07/28/16 16:25 148/71 07/28/16 16:21 87 24 98 07/28/16 16:21 85 24 07/28/16 16:20 145/68 07/28/16 16:16 83 18 99 07/28/16 16:16 88 18 07/28/16 16:15 84 15 07/28/16 16:15 87 15 144/95 99 07/28/16 16:10 91 16 153/85 100 07/28/16 16:10 89 16 07/28/16 16:05 88 12 160/71 100 07/28/16 16:05 88 12 07/28/16 16:00 97 12 07/28/16 16:00 91 12 151/74 100 07/28/16 15:56 136/65 07/28/16 15:55 84 19 100 07/28/16 15:55 84 19 07/28/16 15:50 37 84 16 136/64 100 Mask 10 07/28/16 08:02 37.0 89 16 138/61 94 Room Air Laboratory Results 24 Hours: Test 07/29/16 05:30 White Blood Count 13.20 K/uL Red Blood Count 3.86 M/uL Hemoglobin 11.4 g/dL Hematocrit 33.4 % Mean Corpuscular Volume 86.5 fL Mean Corpuscular Hemoglobin 29.5 pg Mean Corpuscular Hemoglobin Concent 34.1 g/dl Platelet Count 269 K/uL Mean Platelet Volume 9.1 fL Neutrophils (%) (Auto) 74.4 % Lymphocytes (%) (Auto) 15.0 % Monocytes (%) (Auto) 10.0 % Eosinophils (%) (Auto) 0.2 % Basophils (%) (Auto) 0.1 % Neutrophils # (Auto) 9.83 K/uL Lymphocytes # (Auto) 1.98 K/uL Monocytes # (Auto) 1.32 K/uL Eosinophils # (Auto) 0.02 K/uL Basophils # (Auto) 0.01 K/uL Prothromb Time International Ratio 1.1 Prothrombin Time 11.8 SECONDS Assessment & Plan Assessment: POD 1 s/p Right Bipolar Hemiarthroplasty Plan: PT/OT Planning for rehab facility upon dc. Inhouse Planning Pain Management: Celebrex, Morphine, Oxy IR DVT Prophylaxis: TEDs, SCDs, ASA Discharge Planning Discharge Planning: rehab hospital Therapy: Physical Therapy
[2016-07-29] MEDS: FLUTICASONE/SALMETEROL 100/50 (ADVAIR) 14 PUFF/1 INHALER INH SCH ×2 (08:46→20:43)
[2016-07-29] MEDS: LORATADINE 10 MG TAB PO SCH (08:47)
[2016-07-29] MEDS: CeleBREX 200 MG CAP PO SCH ×2 (08:47→20:44)
[2016-07-29] MEDS: DOCUSATE SODIUM 100 MG CAP PO SCH ×2 (08:48→20:44)
[2016-07-29] MEDS: CEROVITE ADV FORMULA TAB PO SCH (08:48)
[2016-07-29] MEDS: ASPIRIN 81 MG ECTAB PO SCH ×2 (08:48→20:45)
[2016-07-29] MEDS: MULTIVITAMIN TAB PO SCH (08:48)
[2016-07-29] MEDS: FERROUS GLUCONATE 324 MG TAB PO SCH ×3 (08:48→17:43)
[2016-07-29] MEDS: PANTOprazole SOD 40 MG TAB PO SCH (08:49)
--- NOTE | 2016-07-29 08:52 | Anesthesiology Progress Note ---
Anesthesia Post Op Note Date & Time Jul 29, 2016 at 08:51 Vital Signs Vital Signs Past 12 Hours Date Time Temp Pulse Resp B/P Pulse Ox O2 Delivery O2 Flow Rate FiO2 07/29/16 07:36 36.6 81 16 115/67 95 Room Air 07/29/16 02:57 36.3 83 16 108/65 96 Nasal Cannula 1.0 07/28/16 23:30 97 Nasal Cannula 1.0 07/28/16 23:16 36.5 88 14 124/73 98 Nasal Cannula 2.0 Notes Mental Status: alert / awake / arousable, participated in evaluation Pt Amnestic to Procedure: Yes Nausea / Vomiting: adequately controlled Pain: adequately controlled Airway Patency, RR, SpO2: stable & adequate BP & HR: stable & adequate Hydration State: stable & adequate Anesthetic Complications: no major complications apparent
[2016-07-29] MEDS: GEMFIBROZIL 600 MG TAB PO SCH ×2 (09:15→20:45)
--- NOTE | 2016-07-29 17:49 | Family Medicine Progress Note ---
Progress Note Date of Service Jul 29, 2016. Subjective Pt evaluation today including: conversation w/ patient Pain: controlle with tylenol Voiding: no voiding problems Patient reports feeling well. Pain is controlled Tolerating physical therapy. Constitutional: No chills, No fever, No sweats Eyes: No worsening of vision ENT: No hearing loss Respiratory: No cough, No dyspnea on exertion, No shortness of breath, No sputum, No wheezing Cardiovascular: No chest pain Abdomen: No constipation, No diarrhea, No nausea, No pain, No vomiting Female : No dysuria, No hematuria, No urinary frequency Neurologic: No numbness/tingling, No paralysis, No weakness Objective Physical Exam General Appearance: no apparent distress Eyes: PERRL, EOMI ENT: + pertinent finding (mild hearing difficulty) Neck: supple, no adenopathy, no JVD Respiratory/Chest: lungs clear, normal breath sounds, no respiratory distress, no accessory muscle use Cardiovascular: regular rate, rhythm, no JVD, + systolic murmur Abdomen: normal bowel sounds, non tender, soft Extremities: no calf tenderness, + pedal edema (trace), + pertinent finding ( tenderness of right hip, drain in place with serosanguinous drainage) Neurologic/Psychiatric: alert, normal mood/affect, oriented x 3, + motor weakness (Right sided, post op) Assessment and Plan 86 y.o.F with a h/o hypothyroidism, HL, mild , mod AI, PFO, and mild asthma who presented with mechanical fall resulting in right hip pain -found to have a displaced, impacted subcapital hip fracture. On presentation patient was found to have hypertensive urgency which has since resolved. She is POD #1. She remains afebrile and hemodynamically stable. Right Hip Fracture s/p Right Bipolar Hemiarthroplasty POD 1 - pain controlled - continue PT/OT here - Tripp dc/d - awaiting [facility] placement Hypertensive Urgency-resolved with pain control, no hx of HTN - continue po hydralazine prn Asthma-mild- stable - continue Albuterol prn and Symbicort HLD - cont statin Mild , Mod AI on ECHO from 2009, with murmur noted. No anginal symptoms, no s/ sxs of CHF or syncope, likely not severe -has routine ECHO ordered as outpatient in near future -watch extremes of fluid status post-op DVT proph Aspirin BID as per Ortho Full Code Reviewed: Pt Seen/Exam by Me History Resident Physician Supervision Note: I interviewed and examined the patient. Discussed with Dr. Hollis and agree with findings and plan as documented in the note. Any exceptions or clarifications are listed here: Patient doing very well, pain control, out of bed to chair and walking with physical therapy. No chest pain or shortness of breath. Vitals reviewed No acute distress, sitting in chair eating dinner Regular rate and rhythm, 2/6 systolic ejection murmur at the right upper sternal border Clear to auscultation bilaterally, breathing unlabored Abdomen soft nontender nondistended positive bowel sounds Extremities no edema, neurovascularly intact distal to the right hip, dorsiflexion and plantar flexion of the right foot are intact, dressing in place with surrounding ecchymosis over right hip 78-year-old female here status post mechanical fall with right hip fracture now postop day 1 status post bipolar repair. Doing well -DVT prophylaxis with aspirin twice a day -Pain control -Plan for discharge to [facility] as per orthopedics when ready -All other medical issues are stable Documented By: Yaquelin Lainez Assessment/Plan Patient is a 86 y.o.F with a h/o hypothyroidism, HL, mild , mod AI, PFO, and mild asthma who presented with mechanical fall resulting in right hip pain - found to have a displaced, impacted subcapital hip fracture. On presentation patient found to have hypertensive urgency Right Hip Fracture - admit to med surgery - consult orthopedics appreciated-plan for surgery sometime today, keep NPO - pain control with morphine - bed Rest -Tripp cath -will need SNF placement Hypertensive Urgency-resolved with pain control and hydralazine- pt has no PMhx of hypertension and states she is extremely anxious - cont ativan prn - continue po hydralazine prn -ok for OR today Asthma-mild, - not in exacerbation - continue albuterol prn and symbicort HLD - cont lopid Mild , Mod AI on ECHO from 2009, with murmur here today. No anginal symptoms, no s/sxs of CHF or syncope, likely not severe and not limiting her from having urgent surgery -has routine ECHO ordered as outpatient in near future -watch extremes of fluid status post-op and intra-op PPx- lovenox fo rnow, Ortho to decide after surgery Full Code
[2016-07-29] MEDS: SENNA 8.6 MG TAB PO SCH (20:46)
--- NOTE | 2016-07-30 04:45 | Clinical Documentation Query ---
CLINICAL DOCUMENTATION QUERY 86 year old female who presents to the Emergency Room via ambulance with complaints of constant right hip pain status post a fall today. In your clinical opinion is this patient being managed for: ( ) Traumatic Osteoporotic fracture of right femur sustained in ground level fall. ( ) Other explanation of clinical findings (Please Explain) ( ) Unable to determine (Please Define) ( ) Need to Discuss ( ) Not Agree The medical record reflects the following clinical findings, treatment, and risk factors. Clinical Indicators: 86y/o, female, Fall from ground level which fractured right femoral neck. Treatment: Orthopedic consult, surgical fixation. Risk Factors: Age, sex, low level fall where patient suffered long bone fracture in which young healthy bone would not have fractured. Please clarify and document your clinical opinion in the progress notes and discharge summary. Terms such as "probable", "suspected", "likely", "questionable", "possible", or "still to be ruled out" are acceptable. IF IN AGREEMENT, YOU MUST DOCUMENT ABOVE DIAGNOSTIC STATEMENT IN DAILY PROGRESS NOTES AND DISCHARGE SUMMARY. This document is not part of the patient's record. Thank You, Humberto Sorto, LUCIANA [phone]
[2016-07-30] MEDS: LEVOTHYROXINE 75 MCG TAB PO SCH (05:55)
[2016-07-30] MEDS: ACETAMINOPHEN 500 MG TAB PO SCH ×2 (05:56→14:00)
[2016-07-30 06:08] LABS: BASO % 0.3 %; BASO ABS # 0.03 K/uL (0-0.2); COMPLETE YES; EOS % 1.6 %; HEMATOCRIT 29.9 % (37-47); IG% 0.3 %; LYMPH % 12.9 %; LYMPH ABS # 1.31 K/uL (1.2-3.4); MEAN CELL VOLUME 85.9 fL (80-100); MEAN CORPUSCULAR HEMOGLOBIN 28.7 pg (25-34); MEAN CORPUSCULAR HGB CONC 33.4 g/dl (32-36); MEAN PLATELET VOLUME 9.2 fL (7.4-10.4); MONO % 9.6 %; NEUT % 75.3 %; PLATELET COUNT 258 K/uL (130-400); RED BLOOD COUNT 3.48 M/uL (4.2-5.4); WHITE BLOOD COUNT 10.14 K/uL (4.8-10.8)
[2016-07-30 06:47] LABS: BUN/CREATININE RATIO 19.7 (10-20); CALCIUM 8.3 mg/dl (8.5-10.1); CREATININE 0.65 mg/dl (0.60-1.20); POTASSIUM 3.8 mmol/L (3.5-5.1)
[2016-07-30 07:06] VITALS: BP 113/64; PULSE 79; TEMP 36.4; O2SAT 98
[2016-07-30] MEDS: FERROUS GLUCONATE 324 MG TAB PO SCH ×2 (09:02→13:02)
[2016-07-30] MEDS: CeleBREX 200 MG CAP PO SCH (09:02)
[2016-07-30] MEDS: FLUTICASONE/SALMETEROL 100/50 (ADVAIR) 14 PUFF/1 INHALER INH SCH (09:02)
[2016-07-30] MEDS: GEMFIBROZIL 600 MG TAB PO SCH (09:03)
[2016-07-30] MEDS: MULTIVITAMIN TAB PO SCH (09:03)
[2016-07-30] MEDS: ASPIRIN 81 MG ECTAB PO SCH (09:03)
[2016-07-30] MEDS: DOCUSATE SODIUM 100 MG CAP PO SCH (09:03)
[2016-07-30] MEDS: LORATADINE 10 MG TAB PO SCH (09:03)
[2016-07-30] MEDS: CEROVITE ADV FORMULA TAB PO SCH (09:04)
[2016-07-30] MEDS: PANTOprazole SOD 40 MG TAB PO SCH (09:05)
[2016-07-30] MEDS ORDERED: LORA-741 PO (12:37)
[2016-07-30] MEDS ORDERED: FRRG PO (12:37)
[2016-07-30] MEDS ORDERED: CLB200 PO (12:37)
[2016-07-30] MEDS ORDERED: SNK PO (12:37)
[2016-07-30] MEDS ORDERED: CLC100 PO (12:37)
[2016-07-30] MEDS ORDERED: ACET-1138 PO (12:37)
[2016-07-30] MEDS ORDERED: ASPEC81 PO (12:37)
--- NOTE | 2016-07-30 12:43 | Discharge Instructions ---
Discharge Instructions Date of Service Jul 30, 2016. Admission Reason for Admission: Hip Fracture, Right Discharge Discharge Diagnosis / Problem: Right hip fracture Discharge Goals Goal(s): Improve disease control, Therapeutic intervention Activity Recommendations Activity Level: Assistance Required Therapies: Physical Therapy, Occupational Therapy As per Orthopedics Instructions . Additional Information Patient informed of condition: Yes Advance Directives: Yes DNR: No Level of Care: Acute Rehab Communicable Disease: No Prognosis: Stable Oxygen at (LPM): N/A Tripp Catheter: No Instructions / Follow-Up Instructions / Follow-Up You were admitted for a right hip fracture and had this repaired with Orthopedic surgery. Otherwise, your other health conditions were stable. It is important that you follow up with your PCP after discharge from [facility]. You are also due for a routine Echocardiogram to follow your aortic valve stenosis and regurgitation (leaky valve). ACTIVITY RECOMMENDATIONS: SELF CARE INSTRUCTIONS AFTER TOTAL HIP REPLACEMENT / BIPOLAR HEMIARTHROPLASTY Until the incision and soft tissues around your hip have healed, there is a possibility that the hip prosthesis could dislocate. A. Observe the following precautions to prevent dislocation: 1. Don't bend your hip greater than 90 degrees. 2. Avoid crossing your legs or ankles while standing or lying. 3. Sit with your feet placed 6 inches apart. 4. When sitting, keep your knees below your hips. Sit on a firm surface, avoid deep, soft chairs and couches. Use an elevated toilet seat in the bathroom. 5. Don't bend over at the waist. Use a long handled shoehorn and a sock aid to help you put on your shoes and socks. A printed circuit board panels trimmer can help you apple picker objects that are too high or too low to reach. 6. Keep car riding to a minimum for at least one month after surgery. B. Your balance may be shaky for a while. Use crutches or a walker until directed by your doctor. C. Use hand rails when walking on stairs. D. Wear low heeled shoes with non-slip soles. E. Be sure that your floors are free of things that could trip you - throw rugs , electrical cords, small objects. Avoid wet and waxed floors, especially with crutches and canes. F. Try to walk several times a day with rest periods between. G. Continue with all the exercises taught to you in the hospital. Again, make walking a part of your daily routine. SPECIAL CARE INSTRUCTIONS: VERY IMPORTANT TO READ AND REVIEW A. You may still be at risk for phlebitis and blood clots. 1. Wear surgical stockings (ALYSSA hose) for 2 weeks after surgery to improve circulation and reduce swelling. 2. Take Aspirin 81mg twice daily for 4 weeks or as directed by your doctor. This is your blood thinner. 3. High risk patients may be prescribed a stronger blood thinner if necessary. 4. If you are on Coumadin normally, your family doctor/modeler should monitor your blood work. Expect a phone call the day of or the day after bloodwork is drawn to adjust your dosage. B. You must take antibiotics before having dental work, bladder, bowel and other surgery. Your doctor will provide you with a permanent card to carry describing precautions. C. Call [facility] if you have a fever, redness or swelling around the incision, cloudy drainage from incision, or sudden increase in pain in your hip, not relieved by your regular pain medication. D. Please call the office at if you have any concerns or questions about your operation or recovery. * YOU MAY SHOWER, NO TUB BATHS UNTIL CLEARED BY YOUR DOCTOR. * WEAR ALYSSA HOSE 20 HOURS PER DAY FOR 2 WEEKS. * YOU SHOULD USE A WALKER OR CRUTCHES FOR 2-4 WEEKS. THIS WILL HELP PREVENT STRAIN ON YOUR HIP MUSCLE AND ALLOW IT TO HEAL PROPERLY. YOU MAY WEAN TO A CANE TOLERATED. * MOST PATIENTS WILL HAVE HOME NURSING FOR THERAPY. IF YOU DECIDE TO DO OUTPATIENT PHYSICAL THERAPY, PLEASE SCHEDULE THIS 3 TIMES PER WEEK. * DAILY DRESSING CHANGES. IF WOUND IS DRY, YOU MAY LEAVE TO THE OPEN AIR. . FOLLOW UP VISIT: If appointment is not already scheduled: Please call [facility] to make a follow-up appointment for 2 weeks from the day of your surgery at . Current Hospital Diet Patient's current hospital diet: Regular Diet Discharge Diet Recommended Diet: Regular Diet Procedures Procedures Performed: Right Bipolar Hip Prosthesis Pending Studies Studies pending at discharge: no Physician Orders On Transfer Special Precautions: Hip precautions as per Ortho Dressing Changes: As per Ortho instructions Vital Signs: Routine Weigh: Routine POLST Discussion: Not Applicable Laboratory Results Last 24 Hours Test 07/30/16 05:40 White Blood Count 10.14 K/uL Red Blood Count 3.48 M/uL Hemoglobin 10.0 g/dL Hematocrit 29.9 % Mean Corpuscular Volume 85.9 fL Mean Corpuscular Hemoglobin 28.7 pg Mean Corpuscular Hemoglobin Concent 33.4 g/dl Platelet Count 258 K/uL Mean Platelet Volume 9.2 fL Neutrophils (%) (Auto) 75.3 % Lymphocytes (%) (Auto) 12.9 % Monocytes (%) (Auto) 9.6 % Eosinophils (%) (Auto) 1.6 % Basophils (%) (Auto) 0.3 % Neutrophils # (Auto) 7.64 K/uL Lymphocytes # (Auto) 1.31 K/uL Monocytes # (Auto) 0.97 K/uL Eosinophils # (Auto) 0.16 K/uL Basophils # (Auto) 0.03 K/uL RDW Standard Deviation 43.7 fL RDW Coefficient of Variation 13.8 % Immature Granulocyte % (Auto) 0.3 % Immature Granulocyte # (Auto) 0.03 K/uL Sodium Level 131 mmol/L Potassium Level 3.8 mmol/L Chloride Level 98 mmol/L Carbon Dioxide Level 24 mmol/L Anion Gap 9.0 mmol/L Blood Urea Nitrogen 13 mg/dl Creatinine 0.65 mg/dl Est Creatinine Clear Calc Drug Dose 58.1 ml/min Estimated GFR () 91.9 Estimated GFR (Non- 79.3 BUN/Creatinine Ratio 19.7 Random Glucose 107 mg/dl Calcium Level 8.3 mg/dl Medical Emergencies . Who to Call and When: Medical Emergencies: If at any time you feel your situation is an emergency, please call 911 immediately. . Non-Emergent Contact Non-Emergency issues call your: Primary Care Provider, Surgeon Call Non-Emergent contact if: you have a fever, your pain is not controlled, your pain is worsening, your pain is unusual for you, your pain is concerning you, wound has increased drainage, wound has increased redness, wound has increased pain, you have any medication questions . . "Provider Documentation" section prepared by Yaquelin Lainez. Core Measure Problem Core Measures: None
[2016-07-30 14:16] VITALS: BP 113/64; PULSE 79; TEMP 36.4; O2SAT 98
--- NOTE | 2016-07-30 21:54 | Discharge Summary ---
Discharge Summary Date of Service Jul 30, 2016. (Anabella Hollis MD) Discharge Summary Admission Date: Jul 27, 2016 at 15:57 Discharge Date: Jul 30, 2016 Discharge Disposition: Rehab Principal Diagnosis: Right femoral neck Hip Fracture s/p bipolar hemiarthroplasty Problems/Secondary Diagnoses: Hyperlipidemia Asthma Hypothyroidism Mild Aortic Stenosis Immunizations: Have You Had Influenza Vaccine: Yes Influenza Vaccine Date: Feb 20, 2010 History of Tetanus Vaccine?: Unknown History of Pneumococcal: Yes History of Hepatitis B Vaccine: Unknown Procedures: PELVIS 1 OR 2 VIEW ROUTINE CLINICAL HISTORY: Right hip pain following fall. COMPARISON STUDY: CT of the abdomen and pelvis August 14, 2011. FINDINGS: There is an acute impacted, displaced subcapital right femoral neck fracture. No acute fracture within the pelvis or the left hip is identified. There is mild to moderate bilateral hip arthritis. IMPRESSION: Acute impacted displaced subcapital right femoral neck fracture. RIGHT FEMUR 2 VIEWS ROUTINE, RIGHT KNEE 1 OR 2 VIEWS ROUTINE CLINICAL HISTORY: fall, pain Right. Right leg and knee pain. COMPARISON STUDY: None. FINDINGS: No fracture or dislocation within the mid to distal right femur or right knee. The proximal right femur is not included on this study and better appreciated on the same day right hip radiograph. Mild osteoarthritis within the right knee. No knee effusion. Soft tissues are unremarkable. IMPRESSION: No fracture or dislocation within the mid to distal right femur or right knee. The proximal right femur is not included on this study and is better appreciated on the same day right hip radiograph. RIGHT HIP UNILATERAL 2 VIEWS CLINICAL HISTORY: Right hip pain following fall. COMPARISON: CT of the abdomen and pelvis August 14, 2011. FINDINGS: There is an impacted, displaced subcapital right femoral neck fracture. IMPRESSION: Acute displaced subcapital right femoral neck fracture. RIGHT FEMUR 2 VIEWS ROUTINE, RIGHT KNEE 1 OR 2 VIEWS ROUTINE CLINICAL HISTORY: fall, pain Right. Right leg and knee pain. COMPARISON STUDY: None. FINDINGS: No fracture or dislocation within the mid to distal right femur or right knee. The proximal right femur is not included on this study and better appreciated on the same day right hip radiograph. Mild osteoarthritis within the right knee. No knee effusion. Soft tissues are unremarkable. IMPRESSION: No fracture or dislocation within the mid to distal right femur or right knee. The proximal right femur is not included on this study and is better appreciated on the same day right hip radiograph. CHEST ONE VIEW PORTABLE CLINICAL HISTORY: Hip fracture. Fall. COMPARISON STUDY: Chest radiograph August 09, 2011. FINDINGS: There is no pneumothorax or pleural effusion. The cardiomediastinal silhouette is stable. There is no evidence of pulmonary edema. The appearance of the chest is unchanged. IMPRESSION: No acute cardiopulmonary findings. RIGHT PELVIS/UNILATERAL HIP 1 VIEW CLINICAL HISTORY: IN PACU - A/P PELVIS and LATERAL HIP INCLUDING ALL OF IMPLANT Right pain. Postoperative evaluation. COMPARISON: None. DISCUSSION: Status post total right hip replacement. Good contact between prosthetic and underlying bone. Moderate degenerative change left hip. There is no evidence for soft tissue swelling. IMPRESSION: Anatomic alignment status post total right hip replacement Consultations: Orthopedics (Anabella Hollis MD) Medication Reconciliation New Medications: Acetaminophen (Tylenol Extra Strength) 500 Mg Tab 1000 MG PO Q8H for 15 Days, TAB Aspirin (Aspirin EC Low Dose) 81 Mg Ectab 81 MG PO BID for 30 Days Celecoxib (Celebrex) 200 Mg Cap 200 MG PO BID PRN for Pain for 30 Days, #60 CAP Docusate Sodium (Docusate Sodium) 100 Mg Cap 100 MG PO BID for 30 Days, #60 CAP Ferrous Gluconate (Ferrous Gluconate) 324 Mg Tab 324 MG PO TIDM for 30 Days, TAB Senna (Senna Lax) 8.6 Mg Tab 17.2 MG PO HS for 30 Days, TAB Changed Medications: Lorazepam (Ativan) 0.5 Mg Tab 0.5 MG PO TID PRN for Anxiety/Insomnia, #10 TAB (Medication details modified) Continued Medications: Albuterol Sulfate (Proair Respiclick) 108 Mcg/Act Aer 1-2 PUFFS INH 4-6 HOURS Esomeprazole Magnesium (Nexium) 40 Mg Capcr 40 MG PO DAILY, 0 Refills Fluticasone Prop/Salmeterol (Advair Diskus 100/50 60 Dose) 1 Ea Aerp 1 PUFF INH BID, INHALER Gemfibrozil (Lopid) 600 Mg Tab 600 MG PO BID, 0 Refills W/MORNING & EVENING MEALS Levothyroxine Sodium (Synthroid) 75 Mcg Tab 75 MCG PO DAILY, TAB Loratadine (Claritin) 10 Mg Tab 10 MG PO DAILY, TAB Multiple Vitamins W/ Minerals (Centrum Silver Ultra Wome) 1 Tab Tab 1 TAB PO DAILY Discharge Exam Review of Systems: Constitutional: No chills, No fever Respiratory: No cough, No dyspnea at rest, No dyspnea on exertion, No shortness of breath, No sputum, No wheezing Cardiovascular: No chest pain Abdomen: No diarrhea, No nausea, No pain, No vomiting Musculoskeletal: + joint pain, No calf pain, No swelling Genitourinary - Female: No dysuria, No urinary frequency, No urinary urgency Neurologic: No numbness/tingling Physical Exam: General Appearance: no apparent distress Eyes: PERRL, EOMI ENT: hearing grossly normal Neck: supple, no adenopathy, no JVD Respiratory/Chest: lungs clear, normal breath sounds, no respiratory distress, no accessory muscle use Cardiovascular: regular rate, rhythm, no JVD, normal peripheral pulses, + systolic murmur Abdomen / GI: normal bowel sounds, non tender, soft Extremities: no calf tenderness, + pedal edema (trace) 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 On presentation patient was found to have hypertensive urgency which has since resolved. She underwent right bipolar Hemiarthroplasty. Her Post-op course was uncomplicated. She remained afebrile and hemodynamically stable. Right Hip Fracture s/p Right Bipolar Hemiarthroplasty - pain controlled - PT/OT - [facility] Hypertensive Urgency-resolved with pain control, no hx of HTN - hydralazine prn Asthma-mild- stable - Albuterol prn and Symbicort Hypothyroidism: - Levothyroxine. HLD - statin Mild , Mod AI on ECHO from 2009, with murmur noted. No anginal symptoms, no s/ sxs of CHF or syncope, likely not severe -has ECHO ordered as outpatient in near future DVT proph Aspirin BID as per Ortho Full Code Total Time Spent: Greater than 30 minutes This includes examination of the patient, discharge planning, medication reconciliation, and communication with other providers. (Anabella Hollis MD) Discharge Instructions Please refer to the electronic Patient Visit Report (Discharge Instructions) for additional information. (Anabella Hollis MD) Additional Copies To Alexander Wren M.D.; [facility] Reviewed: Pt Seen/Exam by Me (Yaquelin Lainez MD) History Resident Physician Supervision Note: I interviewed and examined the patient. Discussed with Dr. Hollis and agree with findings and plan as documented in the note. Any exceptions or clarifications are listed here: Patient doing very well, has no complaints. Her pain is controlled. She is tolerating regular diet. She denies chest pain or shortness of breath. Vitals reviewed No acute distress, sitting in chair eating dinner Regular rate and rhythm, 2/6 systolic ejection murmur at the right upper sternal border Clear to auscultation bilaterally, breathing unlabored Abdomen soft nontender nondistended positive bowel sounds Extremities no edema, neurovascularly intact distal to the right hip, dorsiflexion and plantar flexion of the right foot are intact, dressing in place with surrounding ecchymosis over right hip 78-year-old female here status post mechanical fall with right hip fracture now postop day 1 status post bipolar repair. Doing well -DVT prophylaxis with aspirin twice a day -Pain control -Plan for discharge to [facility] as per orthopedics when ready -All other medical issues are stable -She will need routine echocardiogram in the near future to reassess her aortic stenosis and regurgitation Documented By: Yaquelin Lainez (Yaquelin Lainez MD)
== END 2016-07-30 15:45 | DRG 470 ==
LOC: ENRESERVDT → ENRESERVTM → EDBD 13:46 → C.EDB 13:48 → C.3E 15:57
PROVIDERS: ADMIT Internal Medicine; ATTEND Family Medicine
PROC: 0SRR0JA Replacement of Right Hip Joint, Femoral Surface with Synthetic Substitute, Uncemented, Open Approach (ICD-10-PCS; principal; 2016-07-28 09:00)
DX: S72.011A Unspecified intracapsular fracture of right femur, initial encounter for closed fracture (principal); E78.5 Hyperlipidemia, unspecified; J45.909 Unspecified asthma, uncomplicated; I35.0 Nonrheumatic aortic (valve) stenosis; E03.9 Hypothyroidism, unspecified; W01.0XXA Fall on same level from slipping, tripping and stumbling without subsequent striking against object, initial encounter; M17.11 Unilateral primary osteoarthritis, right knee; I16.0 Hypertensive urgency

== ENCOUNTER → 2017-02-10 | Outpatient (CLI) | payer OTHER ==
[~2017-02-10] MED LIST changes: +ACET-1138 PO; +ADVIN10/60 INH; +ALBU18002 INH; -ALBU1AER9 INH; +ASPEC81 PO; -ATV5 PO; +CLB200 PO; +CLC100 PO; +CLR10 PO; -CLTP PO; -FLNIN NAE; +FRRG PO; +LEVO75TA PO; +LORA-741 PO; -MOME50SP5 NAE; -MULT-506 PO; +MULT-614 PO; +SNK PO; -SYMIN160 INH; -SYN50 PO; -ZFRODT4 SL
[2017-02-10 11:09] LABS: BASO ABS # 0.06 K/uL (0-0.2); COMPLETE YES; EOS % 1.8 %; HEMATOCRIT 37.8 % (37-47); IG% 0.2 %; LYMPH % 36.4 %; LYMPH ABS # 2.17 K/uL (1.2-3.4); MEAN CELL VOLUME 87.3 fL (80-100); MEAN CORPUSCULAR HEMOGLOBIN 28.6 pg (25-34); MEAN CORPUSCULAR HGB CONC 32.8 g/dl (32-36); MEAN PLATELET VOLUME 9.6 fL (7.4-10.4); MONO % 9.9 %; NEUT % 50.7 %; PLATELET COUNT 365 K/uL (130-400); RED BLOOD COUNT 4.33 M/uL (4.2-5.4); WHITE BLOOD COUNT 5.96 K/uL (4.8-10.8)
[2017-02-10 11:24] LABS: ALB/GLOB RATIO 0.9 (0.9-2); ALKALINE PHOSPHATASE 85 U/L (45-117); ALT/SGPT 18 U/L (12-78); AST/SGOT 21 U/L (15-37); BLOOD UREA NITROGEN 12 mg/dl (7-18); BUN/CREATININE RATIO 14.6 (10-20); CALCIUM 8.9 mg/dl (8.5-10.1); CARBON DIOXIDE 30 mmol/L (21-32); CHLORIDE 100 mmol/L (98-107); CHOLESTEROL 170 mg/dl (0-200); CHOLESTEROL/HDL RATIO 2.4; GLUCOSE 97 mg/dl (70-99); HDL CHOLESTEROL 71 mg/dl; LDL CHOLESTEROL CALCULATED 78 mg/dl; POTASSIUM 4.2 mmol/L (3.5-5.1); SODIUM 136 mmol/L (136-145); TRIGLYCERIDES 103 mg/dl (0-150); VERY LOW DENSITY LIPOPROT CALC 21 mg/dl
[2017-02-10 11:51] LABS: ESTIMATED AVERAGE GLUCOSE 117 mg/dl; HA1C FLAG Normal (Normal)
== END | disposition home or self-care (01) ==
LOC: C.LABBC 08:13
PROVIDERS: ATTEND Internal Medicine
DX: I10 Essential (primary) hypertension (principal); J45.909 Unspecified asthma, uncomplicated; K21.0 Gastro-esophageal reflux disease with esophagitis; E03.9 Hypothyroidism, unspecified; R73.03 Prediabetes; E78.1 Pure hyperglyceridemia; I35.0 Nonrheumatic aortic (valve) stenosis

== ENCOUNTER → 2017-03-17 | Outpatient (CLI) | payer OTHER ==
--- NOTE | 2017-03-17 14:35 | ECHOCARDIOGRAM REPORT ---
*NOTICE TO RECEIVING LIBERTARIAN AGENCY This information is strictly Confidential and protected under [place] law. [place] law prohibits you from making any further disclosure of this information unless further disclosure is expressly permitted by the written consent of the person to whom it pertains or is authorized by law. A general authorization for the release of medical or other information is not sufficient for this purpose. Hospital accepts no responsibility if the information is made available to any other person, INCLUDING THE PATIENT. Interpretation Summary * Name: IZABELLA AGUILERA Study Date: 03/17/2017 01:29 PM BP: 196/81 mmHg * Patient Location: [facility] HR: 85 * : 1930 (M/d/yyyy) Gender: Female Height: 63 in * Age: 87 yrs Ethnicity: CA Weight: 157 lb * Ordering Physician: Alexander Wren * Referring Physician: Alexander Wren * Performed By: Bernice Worthington RDCS * * Reason For Study: MODERATE AORTIC STENOSIS * BSA: 1.7 m2 * -- Conclusions -- * There is mild concentric left ventricular hypertrophy. * Left ventricular systolic function is normal. * Grade I diastolic dysfunction, (abnormal relaxation pattern). * Mild aortic regurgitation. * Moderate valvular aortic stenosis. * There is mild mitral annular calcification. * Compared to an echocardiogram performed in 2015, there has been only very slight progression of the aortic stenosis. Procedure Details * A complete two-dimensional transthoracic echocardiogram was performed (2D, M-mode, Doppler and color flow Doppler). Left Ventricle * The left ventricle is normal in size. * There is mild concentric left ventricular hypertrophy. * Ejection Fraction = 50-55%. * Left ventricular systolic function is normal. * Grade I diastolic dysfunction, (abnormal relaxation pattern). * The left ventricular wall motion is normal. Right Ventricle * The right ventricle is normal in size and function. * The right ventricular systolic function is normal as assessed by tricuspid annular plane systolic excursion (TAPSE) (normal >1.5 cm). Atria * The left atrial size is normal. * Right atrial size is normal. Mitral Valve * There is mild mitral annular calcification. * Significant mitral regurgitation is absent. Tricuspid Valve * The tricuspid valve is not well visualized, but is grossly normal. * There is trace tricuspid regurgitation. Aortic Valve * The aortic valve is trileaflet. * Moderate valvular aortic stenosis. * Mild aortic regurgitation. Great Vessels * The aortic root is normal size. Pericardium/Pleural * There is no pericardial effusion. Great Vessels * Normal inferior vena cava diameter and respiratory variation suggests normal central venous pressure. MMode 2D Measurements and Calculations IVSd 1.8 cm IVSs 2.1 cm LVIDd 2.9 cm LVIDs 2.2 cm LVPWd 1.6 cm IVS/LVPW 1.2 FS 26.2 % EDV(Teich) 33.2 ml ESV(Teich) 15.6 ml EF(Teich) 53.0 % EDV(cubed) 25.3 ml ESV(cubed) 10.2 ml EF(cubed) 59.8 % % IVS thick 15.4 % LV mass(C)d 194.6 grams LV mass(C)dI 111.5 grams/m\S\2 SV(Teich) 17.6 ml SI(Teich) 10.1 ml/m\S\2 SV(cubed) 15.1 ml SI(cubed) 8.7 ml/m\S\2 Ao root diam 3.5 cm Ao root area 9.5 cm\S\2 LA dimension 3.6 cm LA/Ao 1.0 LVOT diam 2.0 cm LVOT area 3.2 cm\S\2 LVAd ap4 21.4 cm\S\2 LVLd ap4 7.3 cm EDV(MOD-sp4) 51.8 ml EDV(sp4-el) 53.4 ml LVAs ap4 13.2 cm\S\2 LVLs ap4 6.2 cm ESV(MOD-sp4) 24.8 ml ESV(sp4-el) 23.9 ml EF(MOD-sp4) 52.2 % EF(sp4-el) 55.3 % LVAd ap2 25.7 cm\S\2 LVLd ap2 8.0 cm EDV(MOD-sp2) 70.4 ml EDV(sp2-el) 70.1 ml LVAs ap2 16.7 cm\S\2 LVLs ap2 6.8 cm ESV(MOD-sp2) 35.7 ml ESV(sp2-el) 35.1 ml EF(MOD-sp2) 49.3 % EF(sp2-el) 50.0 % LVLd %diff 9.1 % EDV(MOD-bp) 62.9 ml LVLs %diff 8.0 % ESV(MOD-bp) 30.6 ml EF(MOD-bp) 51.4 % SV(MOD-sp4) 27.1 ml SI(MOD-sp4) 15.5 ml/m\S\2 SV(MOD-sp2) 34.7 ml SI(MOD-sp2) 19.9 ml/m\S\2 SV(MOD-bp) 32.3 ml SI(MOD-bp) 18.5 ml/m\S\2 SV(sp4-el) 29.5 ml SI(sp4-el) 16.9 ml/m\S\2 SV(sp2-el) 35.0 ml SI(sp2-el) 20.1 ml/m\S\2 Doppler Measurements and Calculations Ao V2 max 336.3 cm/sec Ao max PG 45.2 mmHg Ao max PG (full) 38.8 mmHg Ao V2 mean 265.9 cm/sec Ao mean PG 30.3 mmHg Ao mean PG (full) 26.5 mmHg Ao V2 VTI 77.7 cm BRYANT(I,A) 1.2 cm\S\2 BRYANT(I,D) 1.2 cm\S\2 BRYANT(V,A) 1.2 cm\S\2 BRYANT(V,D) 1.2 cm\S\2 AI max jamila 387.5 cm/sec AI max PG 60.1 mmHg AI dec slope 270.2 cm/sec\S\2 AI P1/2t 420.0 msec LV V1 max PG 6.5 mmHg LV V1 mean PG 3.8 mmHg LV V1 max 127.2 cm/sec LV V1 mean 93.5 cm/sec LV V1 VTI 29.0 cm SV(Ao) 737.5 ml SI(Ao) 422.7 ml/m\S\2 SV(LVOT) 92.1 ml SI(LVOT) 52.8 ml/m\S\2
== END | disposition home or self-care (01) ==
LOC: C.CPL 13:24
PROVIDERS: ATTEND Internal Medicine
DX: I35.0 Nonrheumatic aortic (valve) stenosis (principal)

== ENCOUNTER → 2017-08-31 | Outpatient (CLI) | payer OTHER ==
[~2017-08-31] MED LIST changes: -ASPEC81 PO; +ASPI-320 PO
[2017-08-31 10:56] LABS: BASO % 0.7 %; BASO ABS # 0.04 K/uL (0-0.2); EOS % 1.4 %; EOS ABS # 0.08 K/uL (0-0.5); HEMATOCRIT 39.2 % (37-47); LYMPH % 40.8 %; LYMPH ABS # 2.27 K/uL (1.2-3.4); MEAN CELL VOLUME 87.5 fL (80-100); MEAN CORPUSCULAR HGB CONC 33.2 g/dl (32-36); MEAN PLATELET VOLUME 9.9 fL (7.4-10.4); MONO % 9.5 %; MONO ABS # 0.53 K/uL (0.11-0.59); NEUT % 47.6 %; NEUT ABS # 2.64 K/uL (1.4-6.5); PLATELET COUNT 365 K/uL (130-400); RED CELL DISTRIBUTION WIDTH CV 14.1 % (11.5-14.5); RED CELL DISTRIBUTION WIDTH SD 45.6 fL (36.4-46.3); WHITE BLOOD COUNT 5.56 K/uL (4.8-10.8)
[2017-08-31 11:54] LABS: HEMOGLOBIN A1C 5.8 % (4.5-5.6)
[2017-08-31 14:11] LABS: ALBUMIN 3.9 gm/dl (3.4-5.0); ALKALINE PHOSPHATASE 93 U/L (45-117); ALT/SGPT 24 U/L (12-78); AST/SGOT 24 U/L (15-37); BLOOD UREA NITROGEN 12 mg/dl (7-18); CARBON DIOXIDE 28 mmol/L (21-32); CREATININE 0.86 mg/dl (0.60-1.20); GLUCOSE 101 mg/dl (70-99); POTASSIUM 4.1 mmol/L (3.5-5.1); SODIUM 137 mmol/L (136-145); TOTAL PROTEIN 8.1 gm/dl (6.4-8.2)
[2017-08-31 14:22] LABS: CHOLESTEROL 182 mg/dl (0-200); LDL CHOLESTEROL CALCULATED 95 mg/dl
== END | disposition home or self-care (01) ==
LOC: C.LABBC 08:23
PROVIDERS: ATTEND Internal Medicine
DX: I10 Essential (primary) hypertension (principal); J45.909 Unspecified asthma, uncomplicated; K21.0 Gastro-esophageal reflux disease with esophagitis; E03.9 Hypothyroidism, unspecified; R73.03 Prediabetes; E78.1 Pure hyperglyceridemia; I35.0 Nonrheumatic aortic (valve) stenosis